=== PATIENT | male | born 1960 | race Two or more races ===

== ENCOUNTER 2021-01-31 14:43 | Emergency (ER) | payer MEDICAID ==
[~2021-01-31] VITALS: Ht 172.7 cm; Wt 110.4 kg
[2021-01-31 14:48] VITALS: BP 134/88
[2021-01-31] MEDS ORDERED: ACETAMINOPHEN 325 MG TAB PO ONE (15:00)
== END 2021-01-31 21:33 | disposition left against medical advice (07) ==
LOC: ER 14:43
DX: U07.1 COVID-19 (principal); R50.9 Fever, unspecified; F17.210 Nicotine dependence, cigarettes, uncomplicated; E11.9 Type 2 diabetes mellitus without complications; E78.5 Hyperlipidemia, unspecified
CPT/HCPCS: 36415; 71045; 87426

== ENCOUNTER 2021-02-01 08:48 | Emergency (ER) | payer MEDICAID ==
[~2021-02-01] VITALS: Ht 172.7 cm; Wt 111.1 kg
[2021-02-01 16:57] VITALS: BP 137/86
== END 2021-02-01 17:12 | disposition home or self-care (01) ==
LOC: ER 08:48
DX: U07.1 COVID-19 (principal); J06.9 Acute upper respiratory infection, unspecified; E11.9 Type 2 diabetes mellitus without complications; E78.5 Hyperlipidemia, unspecified; F17.210 Nicotine dependence, cigarettes, uncomplicated